=== PATIENT | female | born 1935 | race Caucasian/White ===

== ENCOUNTER → 2019-11-27 | Outpatient (CLI) | payer MEDICARE, BC ==
[~2019-11-27] MED LIST: ASPIRIN E.C. 8181 MG PO; CALCIUM CARBON650 M2 PO; COREG 6.256.25 MG/TA PO; HYZAAR 25 MG-101 TAB PO; NATURAL IRON65 MG PO; OMEGA-31 SGL PO; PROTONIX 40MG T40 MG PO; THE MEDICINE S200 M2 PO; VITAMIN B COMPL1 SGL PO; VITAMIN D31000 I1 PO
[2019-11-27 09:25] VITALS: BP 171/76; PULSE 53
[2019-11-27 10:41] VITALS: BP 149/79; PULSE 76
[2019-11-27 10:42] VITALS: BP 158/76; PULSE 82
[2019-11-27 10:43] VITALS: BP 154/68; PULSE 75
[2019-11-27 10:44] VITALS: BP 155/71; PULSE 81
== END ==
LOC: COL.CARD 08:47
DX: R42 Dizziness and giddiness (principal); R06.02 Shortness of breath; I44.7 Left bundle-branch block, unspecified
CPT/HCPCS: A9500; J2785